=== PATIENT | female | born 2000 | race Caucasian/White ===

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

== ENCOUNTER 2019-04-26 11:45 | Emergency (ER) | payer MEDICAID, OTHER ==
[~2019-04-26] VITALS: Ht 149.9 cm; Wt 96.0 kg
[~2019-04-26 11:45] MED LIST changes: +HYDR-3965 PO; +NITR100C6 PO
[2019-04-26] MEDS ORDERED: LIDOcaine Viscous 15ml cup MM PRN (13:45)
[2019-04-26] MEDS ORDERED: PENI500T2 PO (13:48)
[2019-04-26 13:55] VITALS: BP 121/73
== END 2019-04-26 13:57 | disposition home or self-care (01) ==
LOC: ER 11:46
DX: B00.1 Herpesviral vesicular dermatitis (principal); K13.79 Other lesions of oral mucosa; Z79.899 Other long term (current) drug therapy
CPT/HCPCS: 99283

== ENCOUNTER 2019-08-09 16:32 | Emergency (ER) | payer MEDICAID ==
[~2019-08-09] VITALS: Ht 152.4 cm; Wt 94.8 kg
[~2019-08-09 16:32] MED LIST changes: -HYDR-3965 PO
[2019-08-09 17:49] VITALS: BP 130/69
[2019-08-09] MEDS ORDERED: INHA1INH2 (17:49)
[2019-08-09] MEDS ORDERED: BENZ-16 PO (17:49)
[2019-08-09] MEDS ORDERED: ALBU18HF2 INH (17:49)
== END 2019-08-09 18:11 | disposition home or self-care (01) ==
LOC: ER 16:32
DX: R05 Cough (principal); R09.89 Other specified symptoms and signs involving the circulatory and respiratory systems; R09.81 Nasal congestion; Z79.899 Other long term (current) drug therapy
CPT/HCPCS: 93005; 99283

== ENCOUNTER 2020-08-22 09:34 | Emergency (ER) | payer MEDICAID ==
[~2020-08-22] VITALS: Ht 144.8 cm; Wt 100.5 kg
[~2020-08-22 09:34] MED LIST changes: +ALBU18HF2 INH; +INHA1INH2
[2020-08-22 09:49] VITALS: BP 131/82
[2020-08-22] MEDS ORDERED: SUL50S LEFTEYE (10:00)
== END 2020-08-22 10:18 | disposition home or self-care (01) ==
LOC: ER 09:35
DX: H10.32 Unspecified acute conjunctivitis, left eye (principal); Z79.899 Other long term (current) drug therapy
CPT/HCPCS: 99283

== ENCOUNTER 2020-09-02 20:53 | Emergency (ER) | payer MEDICAID ==
[~2020-09-02] VITALS: Ht 144.8 cm; Wt 81.8 kg
== END 2020-09-02 22:59 | disposition home or self-care (01) ==
LOC: ER 20:53
DX: J06.9 Acute upper respiratory infection, unspecified (principal); R50.9 Fever, unspecified; R05 Cough; J34.89 Other specified disorders of nose and nasal sinuses; Z20.828 Contact with and (suspected) exposure to other viral communicable diseases; Z79.899 Other long term (current) drug therapy
CPT/HCPCS: 36415; 87635; 99283

== ENCOUNTER 2020-09-14 03:38 | Emergency (ER) | payer MEDICAID ==
[~2020-09-14] VITALS: Ht 144.8 cm; Wt 80.0 kg
--- NOTE | 2020-09-14 03:46 | NUR ---
CONTACTED POISON CONTROL, RECOMMENDED 1 HR OF MONITORING. DROWSINESS MAIN SIDE EFFECT.
[2020-09-14 04:59] VITALS: BP 108/69
== END 2020-09-14 05:05 | disposition home or self-care (01) ==
LOC: ER 03:38
DX: T43.211A Poisoning by selective serotonin and norepinephrine reuptake inhibitors, accidental (unintentional), initial encounter (principal); R40.0 Somnolence; Z79.899 Other long term (current) drug therapy; Y92.89 Other specified places as the place of occurrence of the external cause
CPT/HCPCS: 99281; 99283

== ENCOUNTER 2020-10-27 10:38 | Emergency (ER) | payer MEDICAID ==
[~2020-10-27] VITALS: Ht 144.8 cm; Wt 86.4 kg
[2020-10-27] MEDS ORDERED: AMOX-422 PO (11:54)
[2020-10-27] MEDS ORDERED: IBUP-1984 PO (11:54)
[2020-10-27 12:09] VITALS: BP 115/77
== END 2020-10-27 12:10 | disposition home or self-care (01) ==
LOC: ER 10:38
DX: H66.93 Otitis media, unspecified, bilateral (principal); Z79.2 Long term (current) use of antibiotics; Z79.899 Other long term (current) drug therapy
CPT/HCPCS: 99283

== ENCOUNTER 2021-01-16 19:45 | Emergency (ER) | payer MEDICAID ==
[~2021-01-16] VITALS: Ht 144.8 cm; Wt 96.4 kg
[2021-01-16 20:46] LABS: BASOPHILS % (AUTO) 0.6 % (0-1); EOSINOPHILS # (AUTO) 0.1 X10'3 (0-0.9); EOSINOPHILS % (AUTO) 1.1 % (0-6); HEMATOCRIT 36.9 % (35.0-45.0); HEMOGLOBIN 12.2 g/dl (12.0-16.0); LYMPHOCYTES # (AUTO) 1.6 X10'3 (1.1-4.8); LYMPHOCYTES % (AUTO) 29.2 % (21-51); MEAN CORPUSCULAR HEMOGLOBIN 26.5 PG (27.0-31.0); MEAN CORPUSCULAR VOLUME 80.3 FL (78-98); MEAN PLATELET VOLUME 7.2 FL (7.4-10.4); MONOCYTES # (AUTO) 0.4 X10'3 (0-0.9); NEUTROPHILS # (AUTO) 3.4 X10'3 (1.8-7.7); NEUTROPHILS % (AUTO) 62.1 % (42-75); PLATELET COUNT 222 X10'3 (140-440); RED CELL DISTRIBUTION WIDTH 13.2 % (11.5-14.5); WHITE BLOOD COUNT 5.5 X10'3 (4.5-11.0)
[2021-01-16 21:00] LABS: ALANINE AMINOTRANSFERASE 38 U/L (12-78); ALBUMIN 3.7 G/DL (3.4-5.0); ALBUMIN/GLOBULIN RATIO 0.9 (1.1-1.5); ALKALINE PHOSPHATASE 145 IU/L (46-116); ANION GAP 7 (8-16); ASPARTATE AMINO TRANSFERASE 61 U/L (10-37); BILIRUBIN,TOTAL 0.5 MG/DL (0.1-1.0); BLOOD UREA NITROGEN 6 MG/DL (7-18); BUN/CREATININE RATIO 8.3 (6.6-38.0); CHLORIDE 104 MMOL/L (99-107); CREATININE 0.72 MG/DL (0.40-0.90); GLUCOSE 103 MG/DL (70-104); LIPASE 91 U/L (73-393); SODIUM 138 MMOL/L (135-145); TOTAL CARBON DIOXIDE 27.1 MMOL/L (24-32); eGFR > 90 ML/MIN
[2021-01-16 23:04] LABS: CLARITY,URINE SLIGHTLY CLOUDY (Clear); COLOR,URINE YELLOW (Yellow); GLUCOSE, URINE NEGATIVE (Neg); KETONES,URINE NEGATIVE (Neg); LEUKOCYTE ESTERASE ,URINE SMALL (Neg); NITRITES, URINE NEGATIVE (Neg); OCCULT BLOOD,URINE NEGATIVE (Neg); PH,URINE 5.5 (4.8-8.0); PROTEIN,URINE NEGATIVE (Neg); URINE HCG NEGATIVE (NEG); UROBILINOGEN,URINE 0.2 E.U/dL (0.2-1.0)
[2021-01-16 23:32] LABS: UA COLLECTION TYPE CLN CATCH MIDSTREAM
[2021-01-16 23:33] LABS: BACTERIA,URINE NONE SEEN /HPF (Neg); MUCUS STRANDS MODERATE /LPF (Neg); RBC,URINE NONE SEEN /HPF (0-2); SQUAMOUS EPITHELIAL CELL,UR FEW /LPF (FEW)
[2021-01-16 23:46] VITALS: BP 135/90
== END 2021-01-16 23:46 | disposition home or self-care (01) ==
LOC: ER 19:47
DX: R50.9 Fever, unspecified (principal); Z20.822 Contact with and (suspected) exposure to COVID-19; R11.0 Nausea; Z79.899 Other long term (current) drug therapy
CPT/HCPCS: 36415; 80053; 81001; 81025; 83690; 85025; 87088; 87635; 99283; C9803

== ENCOUNTER 2021-08-26 11:06 | Emergency (ER) | payer MEDICAID ==
[~2021-08-26] VITALS: Ht 144.8 cm; Wt 92.0 kg
[2021-08-26 11:30] VITALS: BP 124/74
== END 2021-08-26 21:22 | disposition left against medical advice (07) ==
LOC: ER 11:07
DX: R42 Dizziness and giddiness (principal); Z53.21 Procedure and treatment not carried out due to patient leaving prior to being seen by health care provider
CPT/HCPCS: 93005

== ENCOUNTER 2022-07-03 22:07 | Emergency (ER) | payer MEDICAID ==
[~2022-07-03] VITALS: Ht 144.8 cm; Wt 99.0 kg
[2022-07-03 22:47] LABS: BASOPHILS % (AUTO) 0.4 % (0-1); EOSINOPHILS # (AUTO) 0.1 X10'3 (0-0.9); HEMATOCRIT 37.1 % (35.0-45.0); HEMOGLOBIN 12.5 g/dl (12.0-16.0); LYMPHOCYTES # (AUTO) 2.3 X10'3 (1.1-4.8); LYMPHOCYTES % (AUTO) 22.2 % (21-51); MEAN CORPUSCULAR HEMOGLOBIN 26.8 PG (27.0-31.0); MEAN CORPUSCULAR HGB CONC 33.6 g/dL (33.0-36.5); MEAN CORPUSCULAR VOLUME 79.9 FL (78-98); MEAN PLATELET VOLUME 7.1 FL (7.4-10.4); MONOCYTES # (AUTO) 0.6 X10'3 (0-0.9); NEUTROPHILS # (AUTO) 7.2 X10'3 (1.8-7.7); NEUTROPHILS % (AUTO) 70.4 % (42-75); PLATELET COUNT 378 X10'3 (140-440); RED BLOOD COUNT 4.64 X10'6 (4.20-5.60); RED CELL DISTRIBUTION WIDTH 13.1 % (11.5-14.5); WHITE BLOOD COUNT 10.2 X10'3 (4.5-11.0)
[2022-07-03 23:00] LABS: ALANINE AMINOTRANSFERASE 23 U/L (12-78); ALBUMIN 3.5 G/DL (3.4-5.0); ALBUMIN/GLOBULIN RATIO 0.8 (1.1-1.5); ALKALINE PHOSPHATASE 111 IU/L (46-116); ANION GAP 12 (8-16); ASPARTATE AMINO TRANSFERASE 40 U/L (10-37); BILIRUBIN,TOTAL 0.2 MG/DL (0.1-1.0); BLOOD UREA NITROGEN 4 MG/DL (7-18); BUN/CREATININE RATIO 6.2 (6.6-38.0); CALCIUM 8.9 MG/DL (8.5-10.1); CHLORIDE 101 MMOL/L (99-107); CREATININE 0.65 MG/DL (0.40-0.90); GLUCOSE 94 MG/DL (70-104); LIPASE 68 U/L (73-393); POTASSIUM 3.8 MMOL/L (3.5-5.1); SODIUM 138 MMOL/L (135-145); TOTAL CARBON DIOXIDE 25.5 MMOL/L (24-32); TOTAL PROTEIN 7.8 G/DL (6.4-8.2); eGFR > 90 ML/MIN
[2022-07-04 00:26] LABS: URINE HCG POSITIVE (NEG)
[2022-07-04 01:15] VITALS: BP 110/68
[2022-07-04] MEDS ORDERED: RHO(D) immune globulin 1,500 units (300 MCG) syringe IM ONE (03:00)
== END 2022-07-04 03:17 | disposition home or self-care (01) ==
LOC: ER 22:08
DX: O03.4 Incomplete spontaneous abortion without complication (principal); O26.891 Other specified pregnancy related conditions, first trimester; R10.84 Generalized abdominal pain; R11.2 Nausea with vomiting, unspecified; Z3A.10 10 weeks gestation of pregnancy; Z79.899 Other long term (current) drug therapy
CPT/HCPCS: 36415; 76801; 76817; 80053; 81025; 83690; 84702; 85025; 93976; 96372; 99284; J2790

== ENCOUNTER 2022-08-18 20:13 | Emergency (ER) | payer MEDICAID ==
[~2022-08-18] VITALS: Ht 144.8 cm; Wt 97.7 kg
[2022-08-18] MEDS ORDERED: ketorolac tromethamine 15mg/ml inj. IV ONE (20:15)
[2022-08-18] MEDS ORDERED: normal saline 1000ML IV soln IVB ONE (20:15)
[2022-08-18 20:47] LABS: BASOPHILS # (AUTO) 0.1 X10'3 (0-0.2); BASOPHILS % (AUTO) 0.6 % (0-1); EOSINOPHILS # (AUTO) 0.1 X10'3 (0-0.9); EOSINOPHILS % (AUTO) 0.8 % (0-6); HEMATOCRIT 30.4 % (35.0-45.0); HEMOGLOBIN 9.9 g/dl (12.0-16.0); LYMPHOCYTES # (AUTO) 1.8 X10'3 (1.1-4.8); LYMPHOCYTES % (AUTO) 19.7 % (21-51); MEAN CORPUSCULAR HEMOGLOBIN 24.8 PG (27.0-31.0); MEAN CORPUSCULAR HGB CONC 32.7 g/dL (33.0-36.5); MEAN CORPUSCULAR VOLUME 75.8 FL (78-98); MEAN PLATELET VOLUME 7.2 FL (7.4-10.4); MONOCYTES # (AUTO) 0.7 X10'3 (0-0.9); MONOCYTES % (AUTO) 7.3 % (2-12); NEUTROPHILS # (AUTO) 6.5 X10'3 (1.8-7.7); NEUTROPHILS % (AUTO) 71.6 % (42-75); PLATELET COUNT 356 X10'3 (140-440); RED CELL DISTRIBUTION WIDTH 14.4 % (11.5-14.5)
[2022-08-18 20:58] LABS: ALANINE AMINOTRANSFERASE 19 U/L (12-78); ALBUMIN 3.4 G/DL (3.4-5.0); ALBUMIN/GLOBULIN RATIO 0.8 (1.1-1.5); ALKALINE PHOSPHATASE 129 IU/L (46-116); ANION GAP 12 (8-16); ASPARTATE AMINO TRANSFERASE 48 U/L (10-37); BILIRUBIN,TOTAL 0.5 MG/DL (0.1-1.0); BLOOD UREA NITROGEN 10 MG/DL (7-18); BUN/CREATININE RATIO 7.5 (6.6-38.0); CHLORIDE 106 MMOL/L (99-107); CREATININE 1.34 MG/DL (0.40-0.90); GLUCOSE 93 MG/DL (70-104); LIPASE 54 U/L (73-393); POTASSIUM 3.2 MMOL/L (3.5-5.1); SODIUM 141 MMOL/L (135-145); TOTAL CARBON DIOXIDE 23.3 MMOL/L (24-32); TOTAL PROTEIN 7.5 G/DL (6.4-8.2); eGFR 49 ML/MIN
[2022-08-18 20:59] LABS: CLARITY,URINE CLEAR (Clear); COLOR,URINE YELLOW (Yellow); GLUCOSE, URINE NEGATIVE (Neg); KETONES,URINE NEGATIVE (Neg); LEUKOCYTE ESTERASE ,URINE NEGATIVE (Neg); NITRITES, URINE NEGATIVE (Neg); OCCULT BLOOD,URINE NEGATIVE (Neg); PH,URINE 7.5 (4.8-8.0); PROTEIN,URINE TRACE mg/dl (Neg); URINE HCG NEGATIVE (NEG); UROBILINOGEN,URINE 0.2 E.U/dL (0.2-1.0)
[2022-08-18 21:00] LABS: UA COLLECTION TYPE CLN CATCH MIDSTREAM
[2022-08-18 21:11] LABS: BACTERIA,URINE FEW /HPF (Neg); MUCUS STRANDS FEW /LPF (Neg); RBC,URINE 0-2 /HPF (0-2); SQUAMOUS EPITHELIAL CELL,UR FEW /LPF (FEW); TRICHOMONAS,URINE FEW /HPF (NEGATIVE); WBC,URINE 0-4 /HPF (0-4)
[2022-08-18 21:13] VITALS: BP 128/74
== END 2022-08-18 21:32 | disposition home or self-care (01) ==
LOC: ER 20:13
DX: O26.891 Other specified pregnancy related conditions, first trimester (principal); R10.84 Generalized abdominal pain; Z79.899 Other long term (current) drug therapy; Z3A.01 Less than 8 weeks gestation of pregnancy
CPT/HCPCS: 36415; 80053; 81001; 81025; 83690; 85025; 96361; 96374; 99283; J1885; J7030

== ENCOUNTER 2023-10-01 18:20 | Emergency (ER) | payer MEDICAID ==
[~2023-10-01] VITALS: Ht 144.8 cm; Wt 87.8 kg
[2023-10-01] MEDS ORDERED: ibuprofen 200mg tablet PO STA (22:50)
[2023-10-01] MEDS ORDERED: acetaminophen 325mg tablet PO ONE (22:50)
[2023-10-01] MEDS ORDERED: IBUP-1984 PO (22:54)
[2023-10-01] MEDS ORDERED: ACET325T99 PO (22:54)
[2023-10-02 01:24] VITALS: BP 126/64; PULSE 87; RESP 16; TEMP 98.8; O2SAT 98
== END 2023-10-02 01:00 | disposition home or self-care (01) ==
LOC: ER 18:21
DX: S20.211A Contusion of right front wall of thorax, initial encounter (principal); V49.3XXA Car occupant (driver) (passenger) injured in unspecified nontraffic accident, initial encounter; Y93.89 Activity, other specified; Y92.89 Other specified places as the place of occurrence of the external cause; Y99.8 Other external cause status
CPT/HCPCS: 71101; 99284

== ENCOUNTER 2025-07-17 23:05 | Emergency (ER) | payer MEDICAID ==
[~2025-07-17] VITALS: Ht 144.8 cm; Wt 72.7 kg
[~2025-07-17 23:05] MED LIST changes: +ACET325T99 PO
[2025-07-17 23:14] VITALS: BP 115/75; PULSE 83; RESP 16; O2SAT 96
[2025-07-18] MEDS ORDERED: IBUP-1986 PO (00:08)
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
[2025-07-18] MEDS: ibuprofen tablet 400 MG TABLET PO ONE (00:30)
--- NOTE | 2025-07-18 00:45 | RADIOLOGY REPORT ---
CLINICAL INDICATION: ANKLE PAIN TECHNIQUE: 3 views left foot, 3 views left ankle DI ANKLE, COMPLETE(3VW MIN), DI FOOT, COMPLETE (3VW MIN) Comparison: None FINDINGS: No acute fracture or joint malalignment. Normal osseous mineralization. No significant degenerative change. Unremarkable soft tissues. IMPRESSION: 1. No acute finding of the left foot or ankle.
[2025-07-18 00:54] VITALS: TEMP 98.3
== END 2025-07-18 00:57 | disposition home or self-care (01) ==
LOC: ER 23:05
DX: S93.492A Sprain of other ligament of left ankle, initial encounter (principal); Z79.899 Other long term (current) drug therapy; V13.4XXA Pedal cycle driver injured in collision with car, pick-up truck or van in traffic accident, initial encounter; Y93.55 Activity, bike riding; Y92.89 Other specified places as the place of occurrence of the external cause; Y99.8 Other external cause status
CPT/HCPCS: 73610; 73630; 99284; L4360

== ENCOUNTER 2025-08-28 17:11 | Emergency (ER) | payer MEDICAID, OTHER ==
[~2025-08-28] VITALS: Ht 144.8 cm; Wt 73.7 kg
[~2025-08-28 17:11] MED LIST changes: +IBUP-1986 PO
[2025-08-28 17:18] VITALS: BP 128/72; PULSE 56; RESP 20; TEMP 97.7; O2SAT 98
--- NOTE | 2025-08-28 17:57 | RADIOLOGY REPORT ---
CLINICAL INDICATION: Finger Pain TECHNIQUE: DI FINGER(S) Comparison: None FINDINGS/IMPRESSION: : There is no evidence of acute fracture or dislocation. Soft tissues are unremarkable.
--- NOTE | 2025-08-28 19:26 | Physician Documentation ---
History of Present Illness ~ Chief Complaint: Finger pain Stated Complaint: R HAND PAIN Time Seen by MD: 18:40 Primary Medical Doctor: [facility] HPI 24-year-old female presents to the ER after injuring her right thumb while at work. This is a we are lift in a patient fell smashing her right thumb which now has pain and swelling. Tetanus within 5 years: Yes Medication Reconciliation Allergies: Coded Allergies: No Known Allergies (Unverified , 08/28/25) Scheduled Acetaminophen (Acetaminophen), 650 MG PO Q6H Albuterol Sulfate (Ventolin Hfa), 2 PUFFS INH Q4HPRN Antipyrine/Benzocaine (Antipyrine-Benzocaine Ear Drop), 2-4 DROP RIGHT EAR Q2H PRN Diphenhydramine HCl (Benadryl Allergy), 5 ML PO Q6H PRN Ibuprofen (Ibuprofen), 1 TAB PO Q8H Ibuprofen* (Motrin*), 400 MG PO Q8H Nitrofurantoin Monohyd/M-Cryst (Macrobid 100 mg Capsule), 1 CAP PO Q12H Miscellaneous Medications Home Med List (No Home Medications), (Reported) Durable Medical Equipment Inhaler, Assist Devices (Aerochamber with Flowsignal), UNIT, (DME) Past Medical History Past Medical History: No Pertinent History Past Surgical History: no surgical history Alcohol Use: None Drug Use: none Lives with: Father Occupation: student Review of Systems All Other Systems at this time: Reviewed and Negative ROS As stated above in the HPI, otherwise all systems are reviewed and negative. Physical Exam Vital Signs: Temperature: 97.7, Source: Temporal, Heart Rate: 56, Respiratory Rate: 20, BP: 128/72, Pulse Oximetry: 98, Weight: 73.700 Oxygen Flow Rate: 0 Physical Exam General: Alert, no apparent distress. Extremities: Normal range of motion, no deformity. Mild right thumb swelling full range of motion no deformity Neurologic: Oriented x4. Psychiatric: Normal mood and affect. Skin: Normal color, warm and dry. No edema, no ecchymosis. Progress Results/Orders Results/Orders Orders - RASHAUN VALLES [facility]ALTH NURSE LICENSED PRACTICAL Finger(S) (08/28/25 17:23) Ortho Orders (08/28/25 ) Completed Orders - RASHAUN VALLES HOME HEALTH NURSE LICENSED PRACTICAL Finger(S) (08/28/25 17:23) Vital Signs 08/28/25 17:18 Temp 97.7 Pulse 56 Resp 20 B/P (MAP) 128/72 Pulse Ox 98 O2 Flow Rate 0 Medical Decision Making Additional information obtaine: old records Findings Per my interpretation of patient's x-ray I did not appreciate any signs of acute fracture I do suspect a sprain or contusion. Gave her a wrist splint and advised her to follow up with the worker's comp provider or General Diff Dx:Considerations: Unlikely: Abrasion, Contusion, Fracture, H ematoma, Laceration, Malunion, Neurovascular injury, Open fracture, Sprain, Ulcer, Other Shoulder Diff Dx:Consideration: Unlikely: AC separation, Adhesive capsulitis, Arthritis, Bicipital tendonitis, Calcific tendonitis, Cervical disc disease, Contusion, Dislocation, Fracture-humerus, Fracture-scapula, Fracture-clavicle, GB disease, Hematoma, Impingement syndrome, Myocardial infarction, Neurovascular injury, Open fracture-humerus, Open fracture-scapula, Open fracture-clavicle, Rotator cuff injury, SC dislocatoin, Sprain, Subacromial bursitis, Other Elbow Diff Dx:Considerations: Unlikely: Abrasion, Arthritis, Contustion, DJD, Fracture-humerus, Fracture-radial head, Fracture-radius, Fracture-ulna, Gout, Hematoma, Laceration, Neurovascular injury, Olecranon bursitis, Open fracture, Osteomyelitis, Radial head subluxation, Rheumatoid arthritis, Septic, Sprain, Ulcer, Other Wrist Diff Dx:Considerations: Unlikely: Abrasion, Arthritis, DJD, Gout, Rheum atoid, Septic, Carpal tunnel snydrome, Contusion, Dislocation, Fracture-carpal, Fracture-radius, Fracture-ulna, Ganglion, Laceration, Neurovascular injury, Open fracture, Strain, Other Hand Diff Dx:Considerations: Unlikely: Abrasion, Arthritis, Contusion, DJD, Felon, Fracture-carpal, Fracture-metacarpal, Fracture-phalynx, Fracture-radius, Fracture-ulna, Gout, Hematoma, Herpetic tiffanie, Laceration, Neurovascular injury, Open fracture, Paronychia, Rheumatoid arthritis, Septic, Sprain, S ubungual hematoma, Tenosynovitis, Volar plate injury, Cellulitis, Malunion, Other Finger Diff Dx:Considerations: Include: Abrasion, Cellulitis, Contusion, Dislocation, Fracture, Hematoma, Laceration, Neurovascular injury, Open fractur e, Subungual hematoma, Other Departure Disposition: 01 HOME / SELF CARE / HOMELESS Impression: Primary Impression: Sprain Condition: Stable Discharge Instructions: Sprains Referrals: NO PRIMARY CARE PROVIDER (PCP) Signature Scribe Signature: f Attestation: Scribed for Rashaun Valles Key Carrier by Rashaun Mayer NP . 08/28/25 22:59 RASHAUN VALLES NP Aug 28, 2025 19:26
== END 2025-08-28 19:46 | disposition home or self-care (01) ==
LOC: ER 17:12
DX: S63.681A Other sprain of right thumb, initial encounter (principal); Z79.899 Other long term (current) drug therapy; W18.39XA Other fall on same level, initial encounter; Y93.89 Activity, other specified; Y92.89 Other specified places as the place of occurrence of the external cause; Y99.8 Other external cause status
CPT/HCPCS: 29125; 73140; 99283